=== PATIENT | female | born 1950 | race Caucasian/White ===

== ENCOUNTER → 2018-07-16 21:16 | Outpatient (CLI) | payer MEDICARE, OTHER | END | disposition home or self-care (01) | LOC: D.MAMMO 14:00 | DX: Z12.31 Encounter for screening mammogram for malignant neoplasm of breast (principal) ==

== ENCOUNTER 2018-11-14 21:58 | Emergency (ER) | payer MEDICARE, OTHER ==
[~2018-11-14] VITALS: Ht 165.1 cm; Wt 85.5 kg
[2018-11-14 22:02] VITALS: Ht 165.1 cm; Wt 85.5 kg
[2018-11-14] MEDS ORDERED: SINGULAIR5 MG PO (22:04)
[2018-11-14] MEDS ORDERED: AMOXICILLIN500 M1 PO (22:04)
[2018-11-14] MEDS ORDERED: ALBUTEROL SULF8.5 GM INH (22:04)
[2018-11-14 22:34] LABS: BASOPHILS 0.8 % (0-2); EOSINOPHILS 14.2 % (0-7); HEMOGLOBIN 14.3 g/dL (12-16); IMMATURE GRANULOCYTES 0.2 % (0-5); LYMPHOCYTES 20.2 % (15-50); MCH 32.4 pg (26.0-34.0); MCV 95.2 fL (80.0-100.0); MEAN PLATELET VOLUME 10.8 fL (7.4-10.4); MONOCYTES 9.9 % (2-11); NEUTROPHILS 54.7 % (40-80); PLATELET COUNT 202 10x3/uL (130-400); RBC 4.41 10x6/uL (4.00-5.40); WBC 8.6 10x3/uL (4.8-10.8)
[2018-11-14 22:41] LABS: INR 0.96 (0.85-1.17); PROTIME 12.3 SECONDS (11.6-15.0)
[2018-11-14 22:42] LABS: APTT 31.4 SECONDS (22.8-39.4)
[2018-11-14 22:49] LABS: ALBUMIN 3.4 g/dL (3.4-5.0); ALKALINE PHOSPHATASE 129 U/L (46-116); ALT (SGPT) 120 U/L (10-68); BILIRUBIN - TOTAL 0.63 mg/dL (0.2-1.3); CALC OSMOLALITY 272 mosm/kg (275-300); CALCIUM 8.9 mg/dL (8.5-10.1); CARBON DIOXIDE 23.8 mmol/L (21.0-32.0); CHLORIDE - SERUM 102 mmol/L (98-107); CREATININE - SERUM 0.8 mg/dL (0.6-1.3); GLUCOSE 121 mg/dL (74-106); POTASSIUM - SERUM 3.3 mmol/L (3.5-5.1); SODIUM 136 mmol/L (136-145); UREA NITROGEN 13 mg/dL (7-18); eGFR NON AFRICAN AMERICAN 76 mL/min (90-120)
[2018-11-14 23:00] LABS: CKMB 0.7 U/L (0.0-3.6); CREATINE KINASE 100 UL (21-215); PRO BNP 65 pg/mL (0-125)
[2018-11-14 23:05] LABS: TROPONIN-I < 0.017 ng/mL (0.000-0.060)
[2018-11-15] MEDS ORDERED: TESSALON PERLE100 MG PO (00:02)
[2018-11-15] MEDS ORDERED: CLEOCIN HCL300 MG PO (00:02)
[2018-11-15 00:12] VITALS: BP 165/73
== END 2018-11-15 00:12 | disposition home or self-care (01) ==
LOC: D.ER 21:58
PROVIDERS: Family Medicine
DX: J01.90 Acute sinusitis, unspecified (principal)

== ENCOUNTER 2018-11-21 05:25 | Inpatient (IN) | payer MEDICARE, OTHER ==
[~2018-11-21] VITALS: Ht 165.1 cm; Wt 83.6 kg
[~2018-11-21 05:25] MED LIST: ALBUTEROL SULF8.5 GM INH; AMOXICILLIN500 M1 PO; CLEOCIN HCL300 MG PO; SINGULAIR5 MG PO; TESSALON PERLE100 MG PO
[2018-11-21 05:54] LABS: BASOPHILS 1.1 % (0-2); EOSINOPHILS 14.5 % (0-7); HEMATOCRIT 44.1 % (36.0-48.0); HEMOGLOBIN 14.8 g/dL (12-16); IMMATURE GRANULOCYTES 0.3 % (0-5); LYMPHOCYTES 31.2 % (15-50); MCHC 33.6 g/dL (31.0-37.0); MCV 95.5 fL (80.0-100.0); MEAN PLATELET VOLUME 10.4 fL (7.4-10.4); MONOCYTES 9.4 % (2-11); NEUTROPHILS 43.5 % (40-80); PLATELET COUNT 220 10x3/uL (130-400); RBC 4.62 10x6/uL (4.00-5.40); RDW 13.2 % (11.5-14.5); WBC 8.8 10x3/uL (4.8-10.8)
[2018-11-21 06:04] VITALS: BP 156/63
--- NOTE | 2018-11-21 06:05 | NUR ---
PT RESTING WITHOUT S/S OF DISTRESS NOTED.
[2018-11-21 06:09] LABS: ALBUMIN 3.4 g/dL (3.4-5.0); ALKALINE PHOSPHATASE 115 U/L (46-116); ALT (SGPT) 85 U/L (10-68); BILIRUBIN - TOTAL 0.39 mg/dL (0.2-1.3); CALC OSMOLALITY 286 mosm/kg (275-300); CALCIUM 8.8 mg/dL (8.5-10.1); CARBON DIOXIDE 25.8 mmol/L (21.0-32.0); CHLORIDE - SERUM 106 mmol/L (98-107); CREATININE - SERUM 0.8 mg/dL (0.6-1.3); GLUCOSE 113 mg/dL (74-106); PROTEIN - SERUM 6.8 g/dL (6.4-8.2); SODIUM 143 mmol/L (136-145); UREA NITROGEN 16 mg/dL (7-18); eGFR NON AFRICAN AMERICAN 76 mL/min (90-120)
[2018-11-21 06:17] LABS: PRO BNP 30 pg/mL (0-125); TROPONIN-I < 0.017 ng/mL (0.000-0.060)
--- NOTE | 2018-11-21 06:53 | NUR ---
REPORT GIVEN TO AMILCAR ON MED I
--- NOTE | 2018-11-21 07:20 | NUR ---
PT RECIEVED FROM ER AT THIS TIME VIA STRETCHER NO DISTRESS NOTED ON O2 AT 3 LPM DENIES PAIN AT THIS TIME. ORINETED TO ROOM AND STAFF WELL CALL LIGHT
[2018-11-21] MEDS ORDERED: MUCINEX DM ER1 EAC1 PO (07:51)
[2018-11-21 13:37] VITALS: BP 153/52
[2018-11-21 14:45] VITALS: BP 157/61; BMI 30.6
--- NOTE | 2018-11-21 15:16 | NUR ---
PATIENT WATCHING TV. NO NEEDS AT THIS TIME.
[2018-11-21 17:34] VITALS: BP 170/57
--- NOTE | 2018-11-21 18:23 | NUR ---
PT HAS RESTED OFF AND ON THIS SHIFT HAS HAD NO COMPLAINTS OF PAIN NOTED DYSPNEA WITH EXERTION.
--- NOTE | 2018-11-21 19:00 | NUR ---
REPORT RECEIVED AND CARE OF PT ASSUMED. PT LYING IN HIGH [place]AG[place]'S POSITION WATCHING TV. IV IN LEFT FA PATENT WITH S INFUSING AT 125 ML / HR. O2 IN USE VIA NC AT 2L. WILL MONITOR FOR NEEDS.
[2018-11-21 20:37] VITALS: BP 148/55
--- NOTE | 2018-11-21 21:01 | NUR ---
HS MEDICATIONS GIVEN TO INCLUDE TESSALON PEARLE FOR COUGH. WILL CONTINUE TO MONITOR FOR NEEDS.
[2018-11-22 00:55] VITALS: BP 146/51
[2018-11-22 03:53] LABS: BASOPHILS 0.1 % (0-2); EOSINOPHILS 0.1 % (0-7); HEMATOCRIT 39.9 % (36.0-48.0); HEMOGLOBIN 13.2 g/dL (12-16); IMMATURE GRANULOCYTES 0.3 % (0-5); LYMPHOCYTES 10.7 % (15-50); MCH 31.6 pg (26.0-34.0); MCHC 33.1 g/dL (31.0-37.0); MCV 95.5 fL (80.0-100.0); MEAN PLATELET VOLUME 10.6 fL (7.4-10.4); MONOCYTES 3.5 % (2-11); NEUTROPHILS 85.3 % (40-80); PLATELET COUNT 212 10x3/uL (130-400); RBC 4.18 10x6/uL (4.00-5.40); RDW 13.4 % (11.5-14.5)
[2018-11-22 03:56] LABS: WBC 15.1 10x3/uL (4.8-10.8)
[2018-11-22 04:02] LABS: CALC OSMOLALITY 289 mosm/kg (275-300); CALCIUM 8.3 mg/dL (8.5-10.1); CHLORIDE - SERUM 111 mmol/L (98-107); CREATININE - SERUM 0.8 mg/dL (0.6-1.3); GLUCOSE 150 mg/dL (74-106); POTASSIUM - SERUM 4.1 mmol/L (3.5-5.1); SODIUM 144 mmol/L (136-145); UREA NITROGEN 12 mg/dL (7-18); eGFR NON AFRICAN AMERICAN 76 mL/min (90-120)
[2018-11-22 05:33] VITALS: BP 137/47
[2018-11-22 09:18] VITALS: BP 147/60
[2018-11-22 11:58] VITALS: Ht 165.1 cm; Wt 83.6 kg
[2018-11-22 13:03] VITALS: BP 147/58
[2018-11-22 16:00] VITALS: BP 129/52
--- NOTE | 2018-11-22 18:00 | NUR ---
I have reviewed this patient and I concur with the Shift Assessment completed by the Licensed Practical Nurse today this shift.
--- NOTE | 2018-11-22 19:15 | NUR ---
RECEIVED CARE FROM DAY NURSE. LYING IN BED WATCHING TV. REPORTS NO NEEDS AT THIS TIME. CALL LIGHT AT SIDE. IV INFUSING PER ORDER TO LEFT FA.
[2018-11-22 20:00] VITALS: BP 153/55
--- NOTE | 2018-11-22 22:15 | NUR ---
O2 LOWERED TO 3L VIA NC.
[2018-11-23] VITALS: BP 148/59
--- NOTE | 2018-11-23 02:15 | NUR ---
I have reviewed this patient and I concur with the Shift Assessment completed by the Licensed Practical Nurse today this shift.
[2018-11-23 03:00] VITALS: BP 139/61
[2018-11-23 05:07] LABS: BASOPHILS 0.1 % (0-2); EOSINOPHILS 0 % (0-7); HEMOGLOBIN 12.6 g/dL (12-16); IMMATURE GRANULOCYTES 0.4 % (0-5); LYMPHOCYTES 5.9 % (15-50); MCH 31.6 pg (26.0-34.0); MCHC 32.3 g/dL (31.0-37.0); MEAN PLATELET VOLUME 11.4 fL (7.4-10.4); MONOCYTES 3.7 % (2-11); NEUTROPHILS 89.9 % (40-80); PLATELET COUNT 195 10x3/uL (130-400); RBC 3.99 10x6/uL (4.00-5.40); RDW 13.9 % (11.5-14.5)
[2018-11-23 05:13] LABS: MCV 97.7 fL (80.0-100.0)
[2018-11-23 05:18] LABS: CALC OSMOLALITY 287 mosm/kg (275-300); CALCIUM 8.3 mg/dL (8.5-10.1); CHLORIDE - SERUM 111 mmol/L (98-107); CREATININE - SERUM 0.6 mg/dL (0.6-1.3); GLUCOSE 144 mg/dL (74-106); POTASSIUM - SERUM 4.7 mmol/L (3.5-5.1); SODIUM 143 mmol/L (136-145); UREA NITROGEN 13 mg/dL (7-18); eGFR NON AFRICAN AMERICAN > 90 mL/min (90-120)
[2018-11-23 09:04] VITALS: BP 150/59
[2018-11-23 14:14] VITALS: BP 140/70
--- NOTE | 2018-11-23 15:18 | NUR ---
PT SITTING UP IN BED READING PAPER, NO S/ S OF DISTRESS, BED IN LOW POSITION, CL IN REACH CONTINUE WITH PLAN OF CARE
--- NOTE | 2018-11-23 15:43 | NUR ---
I have reviewed this patient and I concur with the Shift Assessment completed by the Licensed Practical Nurse today this shift.
[2018-11-23 17:53] VITALS: BP 154/58
--- NOTE | 2018-11-23 19:15 | NUR ---
RECEIVED CARE FROM DAY NURSE. WATCHING TV. REPORTS NO NEEDS AT THIS TIME. CALL LIGHT AT SIDE. IV INFUSING PER ORDER TO LEFT AC.
[2018-11-23 20:00] VITALS: BP 169/72
[2018-11-24] VITALS: BP 176/75
[2018-11-24 04:00] VITALS: BP 177/78
[2018-11-24 09:45] VITALS: BP 155/68
--- NOTE | 2018-11-24 10:31 | NUR ---
PT SITTING UP IN BED STATES SHE'S DOING BETTER TODAY, ASSSITED PT TO SHOWER, O OTHER NEEDS, PT STATED WAITING ON DR TO BE DC HOME
--- NOTE | 2018-11-24 10:39 | EC ---
PATIENT:YSABEL SANTANA DATE OF SERVICE: 11/21/18 SEX: F MEDICAL RECORD: [id number] DATE OF : [birth year] LOCATION:[facility] AGE OF PATIENT: 68 ADMISSION DATE: 11/21/18 REFERRING PHYSICIAN: INTERPRETING PHYSICIAN: YG PAZ MD ECHOCARDIOGRAM REPORT ECHO CHARGES 4 ECHO COMPLETE Date: 11/22/18 CLINICAL DIAGNOSIS: HYPOXIA ECHOCARDIOGRAPHIC MEASUREMENTS (adult normal given) AC root (d.<3.7cm) 3.2 cm LV Septum d (<1.2 cm> 1.5 cm Valve Excursion 1.7 cm LV Septum (systole) 2.0 cm Left Atria (s.<4.0cm> 3.3 cm LVPW d(<1.2cm) 1.4 cm RV (d.<2.3cm) 1.9 cm LVPW (sytole) 2.0 cm LV diastole(<5.6CM) 4.8 cm MV E-F(>70mm/sec) cm LV systole 2.2 cm LVOT Diameter 1.6 cm MV exc.(>10mm) cm Est.ejection fraction (50-75%) % DOPPLER: LVIT cm/sec A 81.0 cm/sec E 149 cm/sec LA cm/sec RVSP 21.0 mmHg LVOT 167 cm/sec AOP1/2T m/s Asc. Ao 209 cm/sec RVOT 100 cm/sec RA cm/sec PA 143 cm/sec AV Gradient Peak 18.0 mmHg AV Mean 8.6 mmHg AV Area 1.5 cm MV Gradient Peak 8.1 mmHg MV Mean 3.3 mmHg MV Area cm COMMENTS: Police Inspector: 1 GREGORIO GOLVA Apparel Sales Associate: 3 Dr. Paz TAPE# PACS Pericardial Effusion N DATE OF SERVICE: Adequate 2D, color flow, spectral Doppler, and M-mode. LVH is present. LV internal dimensions are normal. Wall motion is normal. EF is greater than or equal to 55%. Aortic valve is tricuspid. No evidence of stenosis on Doppler interrogation. Left atrium is normal. Mitral valve shows no prolapse. Trace MR. Right-sided chamber grossly normal. Trace TR. TRANSINT:[id number] Voice Confirmation ID: [id number] DOCUMENT ID: [id number] ECHOCARDIOGRAM REPORT [id number] YSABEL SANTANA YG PAZ MD at 1039 CC: [id number] DICTATION DATE: 11/23/18912 SERVICES DELIVERY DRIVER: 11/23/18921 ADM IN [place] [id number] [place] [id number]
[2018-11-24 13:46] VITALS: BP 167/72
--- NOTE | 2018-11-24 15:41 | NUR ---
I have reviewed this patient and I concur with the Shift Assessment completed by the Licensed Practical Nurse today this shift.
[2018-11-24 17:35] VITALS: BP 149/60
--- NOTE | 2018-11-24 19:15 | NUR ---
RECEIVED CARE FROM DAY NURSE. SITTING IN BED WATCHING TV. CALL LIGHT AT SIDE. IV SL TO LEFT AC. REPORTS NO NEEDS AT THIS TIME.
[2018-11-24 20:00] VITALS: BP 109/87
[2018-11-25] VITALS: BP 167/68
[2018-11-25 03:37] VITALS: BP 151/71
[2018-11-25 04:56] LABS: BASOPHILS 0.2 % (0-2); EOSINOPHILS 2.8 % (0-7); HEMOGLOBIN 13.8 g/dL (12-16); IMMATURE GRANULOCYTES 1.1 % (0-5); LYMPHOCYTES 26.6 % (15-50); MCH 31.8 pg (26.0-34.0); MCHC 32.9 g/dL (31.0-37.0); MCV 96.8 fL (80.0-100.0); MEAN PLATELET VOLUME 11.3 fL (7.4-10.4); MONOCYTES 9.3 % (2-11); PLATELET COUNT 194 10x3/uL (130-400); RBC 4.34 10x6/uL (4.00-5.40); RDW 13.6 % (11.5-14.5); WBC 13.1 10x3/uL (4.8-10.8)
[2018-11-25 05:09] LABS: CALC OSMOLALITY 281 mosm/kg (275-300); CALCIUM 8.3 mg/dL (8.5-10.1); CARBON DIOXIDE 30.5 mmol/L (21.0-32.0); CHLORIDE - SERUM 106 mmol/L (98-107); CREATININE - SERUM 0.8 mg/dL (0.6-1.3); POTASSIUM - SERUM 3.7 mmol/L (3.5-5.1); SODIUM 142 mmol/L (136-145); UREA NITROGEN 13 mg/dL (7-18); eGFR NON AFRICAN AMERICAN 76 mL/min (90-120)
[2018-11-25 05:15] LABS: GLUCOSE 89 mg/dL (74-106)
[2018-11-25] MEDS ORDERED: SINGULAIR10 MG PO (07:05)
[2018-11-25] MEDS ORDERED: MEDROL DOSE PACK4 MG PO (07:06)
[2018-11-25] MEDS ORDERED: PEPCID PO (07:06)
[2018-11-25] MEDS ORDERED: PEPCID AC20 MG PO (07:07)
[2018-11-25] MEDS ORDERED: ALBUTEROL SULF8.5 GM INH (07:08)
--- NOTE | 2018-11-25 09:16 | MORECARE ---
CASE MANAGEMENT DISCHARGE SUMMARY PATIENT: YSABEL SANTANA UNIT: [id number] ADM DATE: 11/21/18 AGE: 68 : 52 SEX: F ROOM/BED: D.2220 AUTHOR: MICHEL BEY PHYSICIAN: REFERRING PHYSICIAN: SU OSORIO MD DATE OF SERVICE: 11/25/18 Discharge Plan Patient Name: YSABEL SANTANA Facility: [facility]:[place] : 1950 Planned Disposition: Home or Self Care Anticipated Discharge Date: Discharge Date: Expected LOS: Initial Reviewer: [email or web address] Initial Review Date: 11/21/2018 Generated: 11/25/18 10:15 am Coverage Notice Reviewer: [email or web address] - Yaima Alberto Notice Issued Date-Time: 11/25/2018 9:10 Notice Type: IM Discharge Notice Notice Delivered To: Patient Relationship to Patient: Escrow Manager Name: Delivery Method: HAND - Hand Delivered Liliana Days: Prior Verbal Notification: Recipient Understood Notice: Yes Recipient Signature: Yes Med Rec Note Co-signed by Attending: Coverage Notice Comment: Patient Name: YSABEL SANTANA Page [phone] at 0916 All edits/amendments must be made on the electronic document DICTATION DATE: 11/25/18914 SIGN MANUFACTURER: XAVIER 11/25/18914 RPT#: [id number] DC DATE: STATUS: ADM IN [place] [address] [place] [address] END OF REPORT
--- NOTE | 2018-11-25 09:24 | MORECARE ---
CASE MANAGEMENT DISCHARGE SUMMARY PATIENT: YSABEL SANTANA UNIT: [id number] ADM DATE: 11/21/18 AGE: 68 : 52 SEX: F ROOM/BED: D.2220 AUTHOR: MAIDADOC PHYSICIAN: REFERRING PHYSICIAN: SU OSORIO MD DATE OF SERVICE: 11/25/18 Discharge Plan Patient Name: YSABEL SANTANA Facility: [facility]:[place] : 1950 Planned Disposition: Home or Self Care Anticipated Discharge Date: Discharge Date: Expected LOS: Initial Reviewer: [email or web address] Initial Review Date: 11/21/2018 Generated: 11/25/18 10:24 am Comments DCP- Discharge Planning Updated by [id number]: Yaima Alberto on 11/25/18 8:[address] Patient Name: YSABEL SANTANA Admission Status: ER Accout number: [id number] Admission Date: 11-21-2018 : 1950 Admission Diagnosis: Attending: SU OSORIO Current LOS: 4 Anticipated DC Date: Planned Disposition: Home or Self Care Primary Insurance: MEDICARE A & B Discharge Planning Comments: CM met with patient to complete initial dc planning assessment. CM educated patient on the CM role and verbal consent given by patient to complete assessment. 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 At discharge patient plans to return home and feels this is a safe discharge. CM discussed availability of home health, rehab services, and medical equipment. Patient denied known discharge needs at this time. IMM served and explained. CM will continue to follow and will assist as needed with dc plans/needs. Edger Machine Operator: Yaima Alberto DCPIA - Discharge Planning Initial Assessment Updated by [email or web address]: Yaima Alberto on 11/25/18 9:16 am * Is the patient Alert and Oriented? Yes * How many steps to enter\exit or inside your home? * PCP DEVON * [facility]acy [facility] * Preadmission Environment Home with Family * ADLs Independent * Equipment None * List name and contact numbers for known caregivers / representatives who currently or will assist patient after discharge: CASSIE (SON) * Verbal permission to speak to the caregivers and representatives has been obtained from the patient. N/A * Community resources currently utilized None * Additional services required to return to the preadmission environment? No * Can the patient safely return to the preadmission environment? Yes * Has this patient been hospitalized within the prior 30 days at any hospital? No Coverage Notice Reviewer: [email or web address] Wilmer Alberto Notice Issued Date-Time: 11/25/2018 9:10 Notice Type: IM Discharge Notice Notice Delivered To: Patient Relationship to Patient: Alligator Trapper Name: Delivery Method: HAND - Hand Delivered Liliana Days: Prior Verbal Notification: Recipient Understood Notice: Yes Recipient Signature: Yes Med Rec Note Co-signed by Attending: Coverage Notice Comment: Last DP export: 11/25/18 8:15 a Patient Name: YSABEL SANTANA Page [phone] at 0924 All edits/amendments must be made on the electronic document DICTATION DATE: 11/25/18922 INTEGRATED MARKETING SPECIALIST: XAVIER 11/25/18922 RPT#: [id number] DC DATE: STATUS: ADM IN [facility] [address] [place] [address] END OF REPORT
--- NOTE | 2018-11-25 09:35 | NUR ---
PT SITTING UP IN BED. NO ACUTE DISTRESS NOTED. RESP EVEN AND UNLABORED. O2 @ 1L NC IN PLACE. SALINE LOC TO LEFT AC PATENT AND INTACT. REPORTS PAIN 1/10 C/O HEADACHE. DENIES FURTHER NEEDS AT THIS TIME. CL WITHIN REACH. ENCOURAGED TO CALL WITH NEEDS. CONTINUE POC
[2018-11-25 09:53] VITALS: BP 146/57
--- NOTE | 2018-11-25 13:01 | MORECARE ---
CASE MANAGEMENT DISCHARGE SUMMARY PATIENT: YSABEL SANTANA UNIT: [id number] ADM DATE: 11/21/18 AGE: 68 : 52 SEX: F ROOM/BED: D.2220 AUTHOR: MAIDADOC PHYSICIAN: REFERRING PHYSICIAN: SU OSORIO MD DATE OF SERVICE: 11/25/18 Discharge Plan Patient Name: YSABEL SANTANA Facility: [facility]:[place] : 1950 Planned Disposition: Home or Self Care Anticipated Discharge Date: Discharge Date: 11/25/2018 Expected LOS: 0 Initial Reviewer: [email or web address] Initial Review Date: 11/21/2018 Generated: 11/25/18 2:00 pm Comments DCP- Discharge Planning Updated by [email or web address]: Yaima Alberto on 11/25/18 8:[address] Patient Name: YSABEL SANTANA Admission Status: ER Accout number: [id number] Admission Date: 11-21-2018 : 1950 Admission Diagnosis: Attending: SU OSORIO Current LOS: 4 Anticipated DC Date: Planned Disposition: Home or Self Care Primary Insurance: MEDICARE A & B Discharge Planning Comments: CM met with patient to complete initial dc planning assessment. CM educated patient on the CM role and verbal consent given by patient to complete assessment. 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 At discharge patient plans to return home and feels this is a safe discharge. CM discussed availability of home health, rehab services, and medical equipment. Patient denied known discharge needs at this time. IMM served and explained. CM will continue to follow and will assist as needed with dc plans/needs. Flash Drier Operator: Yaima Alberto DCPIA - Discharge Planning Initial Assessment Updated by [email or web address]: Yaima Alberto on 11/25/18 9:16 am * Is the patient Alert and Oriented? Yes * How many steps to enter\exit or inside your home? * PCP DEVON * [facility] * Preadmission Environment Home with Family * ADLs Independent * Equipment None * List name and contact numbers for known caregivers / representatives who currently or will assist patient after discharge: CSASIE (SON) * Verbal permission to speak to the caregivers and representatives has been obtained from the patient. N/A * Community resources currently utilized None * Additional services required to return to the preadmission environment? No * Can the patient safely return to the preadmission environment? Yes * Has this patient been hospitalized within the prior 30 days at any hospital? No Coverage Notice Reviewer: [email or web address] Wilmer Alberto Notice Issued Date-Time: 11/25/2018 9:10 Notice Type: IM Discharge Notice Notice Delivered To: Patient Relationship to Patient: Motor Builder Winder Name: Delivery Method: HAND - Hand Delivered Liliana Days: Prior Verbal Notification: Recipient Understood Notice: Yes Recipient Signature: Yes Med Rec Note Co-signed by Attending: Coverage Notice Comment: Last DP export: 11/25/18 8:24 a Patient Name: YSABEL SANTANA Page [phone] at 1301 All edits/amendments must be made on the electronic document DICTATION DATE: 11/25/18 1300 SUPERVISOR CLEANING AND ANNEALING: XAVIER 11/25/18 1300 RPT#: [id number] DC DATE:11/25/18 STATUS: DIS IN [facility] [address] [place] [address] END OF REPORT
== END 2018-11-25 11:11 | disposition home or self-care (01) | DRG 190 ==
LOC: D.ER 05:25 → OBSVTIME 06:27 → D.MS 06:27
PROVIDERS: Family Medicine; Internal Medicine Pulmonary Disease; ADMIT Family Medicine; ATTEND Family Medicine
DX: J44.0 Chronic obstructive pulmonary disease with (acute) lower respiratory infection (principal); J18.1 Lobar pneumonia, unspecified organism; J20.9 Acute bronchitis, unspecified; J45.909 Unspecified asthma, uncomplicated

== ENCOUNTER 2019-04-27 10:01 | Inpatient (IN) | payer MEDICARE, OTHER ==
[~2019-04-27] VITALS: Ht 165.1 cm; Wt 85.3 kg
[~2019-04-27 10:01] MED LIST changes: +MEDROL DOSE PACK4 MG PO; +MUCINEX DM ER1 EAC1 PO; +PEPCID AC20 MG PO; +PEPCID PO; +SINGULAIR10 MG PO
[2019-04-27] MEDS ORDERED: CLARITIN 10 MG10 MG PO (10:06)
[2019-04-27 10:34] LABS: BASOPHILS 0.8 % (0-2); EOSINOPHILS 10.5 % (0-7); HEMOGLOBIN 15.8 g/dL (12-16); IMMATURE GRANULOCYTES 0.1 % (0-5); LYMPHOCYTES 30.8 % (15-50); MCH 32.4 pg (26.0-34.0); MCHC 35.1 g/dL (31.0-37.0); MCV 92.2 fL (80.0-100.0); MEAN PLATELET VOLUME 11.1 fL (7.4-10.4); MONOCYTES 6.6 % (2-11); NEUTROPHILS 51.2 % (40-80); PLATELET COUNT 213 10x3/uL (130-400); RBC 4.88 10x6/uL (4.00-5.40); RDW 13.2 % (11.5-14.5); WBC 7.1 10x3/uL (4.8-10.8)
[2019-04-27 10:42] LABS: ALBUMIN 3.7 g/dL (3.4-5.0); ALKALINE PHOSPHATASE 74 U/L (46-116); ALT (SGPT) 37 U/L (10-68); BILIRUBIN - TOTAL 0.68 mg/dL (0.2-1.3); CALC OSMOLALITY 277 mosm/kg (275-300); CARBON DIOXIDE 26.6 mmol/L (21.0-32.0); CHLORIDE - SERUM 105 mmol/L (98-107); CREATININE - SERUM 0.8 mg/dL (0.6-1.3); GLUCOSE 124 mg/dL (74-106); POTASSIUM - SERUM 4.4 mmol/L (3.5-5.1); PROTEIN - SERUM 7.2 g/dL (6.4-8.2); SODIUM 139 mmol/L (136-145); UREA NITROGEN 11 mg/dL (7-18); eGFR NON AFRICAN AMERICAN 76 mL/min (90-120)
[2019-04-27 10:51] LABS: PRO BNP 26 pg/mL (0-125); TROPONIN-I < 0.017 ng/mL (0.000-0.060)
[2019-04-27 11:28] VITALS: BP 126/66
[2019-04-27 13:32] VITALS: BP 136/56; Ht 165.1 cm; Wt 85.3 kg
[2019-04-27 18:24] VITALS: BP 114/60
--- NOTE | 2019-04-27 19:15 | NUR ---
RECEIVED CARE FROM DAY NURSE. SITTING UP IN BED WATCHING TV. REPORTS NO NEEDS AT THIS TIME. CALL LIGHT AT SIDE. IV SL TO RIGHT FA. NO DISTRESS NOTED.
[2019-04-27 20:00] VITALS: BP 147/63
[2019-04-28] VITALS: BP 110/43
--- NOTE | 2019-04-28 01:01 | NUR ---
I have reviewed this patient and I concur with the Shift Assessment completed by the Licensed Practical Nurse today this shift.
[2019-04-28 04:00] VITALS: BP 120/46
--- NOTE | 2019-04-28 07:20 | NUR ---
ALERT AND ORIENTED, RESTING IN BED. UP AD JOSE. NO C/O PAIN. NO S/S OF ACUTE DISTRESS NOTED. ON 2L O2, NC. IV TO RIGHT FOREARM, SL. SITE PATENT WITHOUT REDNESS OR SWELLING. PT DENIES ANY NEEDS AT THIS TIME. CALL LIGHT IN REACH. WILL CONTINUE TO MONITOR.
[2019-04-28] MEDS ORDERED: MEDROL DOSE PACK4 MG PO (08:01)
[2019-04-28 09:02] VITALS: BP 127/50
--- NOTE | 2019-04-28 09:43 | NUR ---
DISCHARGED PATIENT HOME. DISCONTINUED IV, CATHETER TIP INTACT. WENT OVER DISCHARGE INSTRUCTIONS WITH PT, PT VERBALIZED UNDERSTANDING. PT DENIES ANY NEEDS.
--- NOTE | 2019-04-28 09:53 | NUR ---
I have reviewed this patient and I concur with the Shift Assessment completed by the Licensed Practical Nurse today this shift.
--- NOTE | 2019-04-28 11:19 | MORECARE ---
CASE MANAGEMENT DISCHARGE SUMMARY PATIENT: CLAUDIA SANTANA UNIT: [id number] ADM DATE: 04/27/19 AGE: 68 : 52 SEX: F ROOM/BED: D.2240 AUTHOR: MICHEL BEY PHYSICIAN: REFERRING PHYSICIAN: SU OSORIO MD DATE OF SERVICE: 04/28/19 Discharge Plan Patient Name: CLAUDIA SATNANA Facility: [facility]:[place] : 1950 Planned Disposition: Home Anticipated Discharge Date: 04/28/19 Discharge Date: 04/28/2019 Expected LOS: 1 Initial Reviewer: [email or web address] Initial Review Date: 04/28/2019 Generated: 04/28/19 12:19 pm Comments DCP- Discharge Planning Updated by [email or web address]: Janice Nunez on 04/28/19 10:[address] Patient Name: CLAUDIA SANTANA Admission Status: ER Accout number: [id number] Admission Date: 04-27-2019 : 1950 Admission Diagnosis: Attending: SU OSORIO Current LOS: 1 Anticipated DC Date: 04-28-2019 Planned Disposition: Home Primary Insurance: MEDICARE A & B Discharge Planning Comments: CM met with patient to complete initial dc planning assessment. CM educated patient on the CM role and verbal consent given by patient to complete assessment. Patient lives at home with her son (Tevin). At discharge patient plans to return and feels this is a safe discharge. CM discussed availability of home health, rehab services, and medical equipment. Patient denied known discharge needs at this time. CM will continue to follow and will assist as needed with dc plans/needs. Powerhouse Oiler: Janice Nunez DCPIA - Discharge Planning Initial Assessment Updated by [email or web address]: Janice Nunez on 04/28/19 11:13 am * Is the patient Alert and Oriented? Yes * How many steps to enter\exit or inside your home? 5/0 * PCP Dr. Osorio * Pharmacy [facility] [address] * Preadmission Environment Home with Family * ADLs Independent * Equipment None * List name and contact numbers for known caregivers / representatives who currently or will assist patient after discharge: Tevin - bismark - [phone] Claudia Toney * Verbal permission to speak to the caregivers and representatives has been obtained from the patient. Yes * Community resources currently utilized None * Additional services required to return to the preadmission environment? No * Can the patient safely return to the preadmission environment? Yes * Has this patient been hospitalized within the prior 30 days at any hospital? No Patient Name: CLAUDIA SANTANA Page [phone] at 1119 All edits/amendments must be made on the electronic document DICTATION DATE: 04/28/191118 PRODUCE WEIGHER: XAVIER 04/28/191118 RPT#: [id number] DC DATE:04/28/19 STATUS: DIS IN [facility] [address] [place] [address] END OF REPORT
--- NOTE | 2019-05-01 08:34 | MORECARE ---
CASE MANAGEMENT DISCHARGE SUMMARY PATIENT: CLAUDIA SANTANA UNIT: [id number] ADM DATE: 04/27/19 AGE: 68 : 52 SEX: F ROOM/BED: D.2240 AUTHOR: MICHEL BEY PHYSICIAN: REFERRING PHYSICIAN: SU OSORIO MD DATE OF SERVICE: 05/01/19 Discharge Plan Patient Name: CLAUDIA SANTANA Facility: [facility]:[place] : 1950 Planned Disposition: Home Anticipated Discharge Date: 04/28/19 Discharge Date: 04/28/2019 Expected LOS: 1 Initial Reviewer: [email or web address] Initial Review Date: 04/28/2019 Generated: 05/01/19 9:33 am Comments DCP- Discharge Planning Updated by [email or web address]: Janice Nunez on 04/28/19 10:[address] Patient Name: CLAUDIA SANTANA Admission Status: ER Accout number: [id number] Admission Date: 04-27-2019 : 1950 Admission Diagnosis: Attending: SU OSORIO Current LOS: 1 Anticipated DC Date: 04-28-2019 Planned Disposition: Home Primary Insurance: MEDICARE A & B Discharge Planning Comments: CM met with patient to complete initial dc planning assessment. CM educated patient on the CM role and verbal consent given by patient to complete assessment. Patient lives at home with her son (Tevin). At discharge patient plans to return and feels this is a safe discharge. CM discussed availability of home health, rehab services, and medical equipment. Patient denied known discharge needs at this time. CM will continue to follow and will assist as needed with dc plans/needs. Section Leader And Machine Setter: Janice Nunez DCPIA - Discharge Planning Initial Assessment Updated by [email or web address]: Janice Nunez on 04/28/19 11:13 am * Is the patient Alert and Oriented? Yes * How many steps to enter\exit or inside your home? 5/0 * PCP Dr. Osorio * Pharmacy [facility] [address] * Preadmission Environment Home with Family * ADLs Independent * Equipment None * List name and contact numbers for known caregivers / representatives who currently or will assist patient after discharge: Tevin - bismark - [phone] Claudia Toney * Verbal permission to speak to the caregivers and representatives has been obtained from the patient. Yes * Community resources currently utilized None * Additional services required to return to the preadmission environment? No * Can the patient safely return to the preadmission environment? Yes * Has this patient been hospitalized within the prior 30 days at any hospital? No Last DP export: 04/28/19 10:19 a Patient Name: CLAUDIA SANTANA Page [phone] at 0834 All edits/amendments must be made on the electronic document DICTATION DATE: 05/01/19832 HAND QUILTER: XAVIER 05/01/19832 RPT#: [id number] DC DATE:04/28/19 STATUS: DIS IN [facility] [address] [place] [address] END OF REPORT
== END 2019-04-28 09:52 | disposition home or self-care (01) | DRG 206 ==
LOC: D.ER 10:01 → D.MS 12:12
PROVIDERS: Family Medicine; ADMIT Family Medicine; ATTEND Family Medicine
DX: R09.02 Hypoxemia (principal); J44.9 Chronic obstructive pulmonary disease, unspecified; J45.909 Unspecified asthma, uncomplicated; G35 Multiple sclerosis

== ENCOUNTER → 2019-04-29 07:44 | Outpatient (CLI) | payer MEDICARE, OTHER ==
[~2019-04-29 07:44] MED LIST changes: +CLARITIN 10 MG10 MG PO
== END | disposition home or self-care (01) ==
LOC: D.RT 07:44
PROVIDERS: ATTEND Internal Medicine Pulmonary Disease
DX: R06.09 Other forms of dyspnea (principal)

== ENCOUNTER 2019-07-18 09:00 | Outpatient (CLI) | payer MEDICARE, OTHER | END 2019-07-18 10:00 | disposition home or self-care (01) | LOC: D.MAMMO 09:00 | PROVIDERS: ATTEND Nurse Practitioner | DX: Z12.31 Encounter for screening mammogram for malignant neoplasm of breast (principal) ==